=== PATIENT | male | born 1995 | race African-American/Black ===

== ENCOUNTER 2021-07-23 20:55 | Emergency (ER) | payer OTHER, MEDICAID ==
[~2021-07-23] VITALS: Ht 162.6 cm; Wt 65.1 kg
[2021-07-23 22:08] VITALS: BP 110/68
[2021-07-23] MEDS ORDERED: AMOX-494 MT (22:25)
[2021-07-23] MEDS ORDERED: IBUPROFEN 400MG TABLET PO ONE (22:30)
== END 2021-07-23 22:31 | disposition left against medical advice (07) ==
LOC: ER 20:55
DX: T18.0XXA Foreign body in mouth, initial encounter (principal); X58.XXXA Exposure to other specified factors, initial encounter; Y93.89 Activity, other specified; Y92.89 Other specified places as the place of occurrence of the external cause; Y99.8 Other external cause status
CPT/HCPCS: 99281